=== PATIENT | male | born 1960 | race Caucasian/White ===

== ENCOUNTER 2017-08-19 15:35 | Emergency (ER) | payer OTHER ==
[2017-08-19 15:42] VITALS: RESP 16
[2017-08-19] MEDS ORDERED: FAMOTIDINE 20 MG/2 ML VIAL IV STA (15:54)
--- NOTE | 2017-08-19 15:59 | ED ---
General Adult HPI - General Chief complaint: Allergic Reaction Stated complaint: Allergic reaction Time Seen by Provider: 08/19/17 15:38 Source: patient, family, RN notes reviewed, old records reviewed Mode of arrival: EMS Limitations: no limitations - History of Present Illness Initial comments: 57-year-old male presents with concern for ALLERGIC reaction. Patient was at his primary care physician regarding any of this morning, he complained of cough which is been ongoing for some time. He was given a shot of Rocephin and Depo-Medrol. States he left clinic, went home in his usual state of health, began developing. Oral erythema and tingling. As well as diffuse rash. He will be presented to the clinic with concern for ALLERGIC reaction. He was given 50 mg of Benadryl. This was repeated for atenolol 100 mg. Patient's symptoms fail to improve. He denied any dyspnea or tongue swelling or difficulty breathing. Denied nausea vomiting. States his rash has progressed to her bodily redness. He has history of ALLERGIC rhinitis and nasal polyps. Patient was transferred by EMS for evaluation. No EpiPen was given. History of Samter's triad. - Related Data Home Medications Medication Instructions Recorded Confirmed Fluticasone/Salmeterol [Advair 1 applic INHALATION RT-BID 08/19/14 08/19/17 250-50 Diskus] Aspirin 325 mg PO BID 08/19/17 08/19/17 Budesonide [Pulmicort] 2 ml EA NOSTRIL BID 08/19/17 08/19/17 Fexofenadine HCl [Ruba Allergy] 180 mg PO QAM 08/19/17 08/19/17 Losartan [Cozaar] 25 mg PO QAM 08/19/17 08/19/17 Montelukast [Singulair] 10 mg PO HS 08/19/17 08/19/17 guaiFENesin [Mucinex] 600 mg PO BID 08/19/17 08/19/17 Allergies Allergy/AdvReac Type Severity Reaction Status Date / Time azithromycin Allergy Rash/Hives, Verified 08/19/17 15:57 Shortness of breath ceftriaxone Allergy Unknown Verified 08/19/17 18:32 sulfamethoxazole Allergy Rash/Hives Verified 08/19/17 15:57 [From Bactrim] trimethoprim [From Bactrim] Allergy Rash/Hives Verified 08/19/17 15:57 Review of Systems ROS Statement: Those systems with pertinent positive or pertinent negative responses have been documented in the HPI. ROS Other: All systems not noted in ROS Statement are negative. Past Medical History Past Medical History: Asthma, COPD Additional Past Medical History / Comment(s): HX OF POLYPS, STATES ALLERGY INDUCED ASTHMA History of Any Multi-Drug Resistant Organisms: None Reported Past Surgical History: Orthopedic Surgery Additional Past Surgical History / Comment(s): KNEE ARTHROSCOPY, RT WRIST ORIF WITH PIN, Past Anesthesia/Blood Transfusion Reactions: No Reported Reaction Past Psychological History: No Psychological Hx Reported Smoking Status: Never smoker General Exam Limitations: no limitations General appearance: alert, in no apparent distress Head exam: Present: atraumatic, normocephalic Eye exam: Present: normal appearance, PERRL ENT exam: Present: mucous membranes dry, other Neck exam: Present: normal inspection. Absent: tenderness, meningismus (or uvular swelling, no stridor) Respiratory exam: Present: normal lung sounds bilaterally. Absent: respiratory distress, wheezes, stridor Cardiovascular Exam: Present: regular rate, normal rhythm GI/Abdominal exam: Present: soft. Absent: distended, tenderness Extremities exam: Present: normal capillary refill. Absent: pedal edema Neurological exam: Present: alert, oriented X3. Absent: motor sensory deficit Psychiatric exam: Present: normal affect, normal mood Skin exam: Present: warm, rash, erythema (diffuse) Course Vital Signs 08/19/17 15:38 Temperature 99.4 F Pulse Rate 87 Respiratory 16 Rate Blood Pressure 138/79 O2 Sat by Pulse 98 Oximetry EKG Findings - EKG Comments: EKG Findings:: EKG shows sinus rhythm with occasional PVC, ventricular rate 79, HI 194, QRS 96, QTC [address] segment elevation Medical Decision Making - Medical Decision Making 57-year-old male presenting with suspected ALLERGIC reaction. Most likely causative agent is ceftriaxone. Patient did receive 100 mg of ceftriaxone. A component of his erythema noted on skin exam is likely anticholinergic reaction , combined with severe dry membranes and tachycardia. Patient is observed in the emergency department for 3 hours, no worsening of symptoms. He was given steroids earlier in the day, Benadryl by primary care physician, and Pepcid by myself. He had no stridor, no wheezing, no signs of anaphylaxis. Ceftriaxone is added to his ALLERGY list. Chest x-ray is negative for focal pneumonia or acute findings. Patient's laboratory studies included CBC and CMP are unremarkable. - Lab Data Result diagrams: 08/19/17 16:12 08/19/17 16:12 Lab Results 08/19/17 08/19/17 Range/Units 16:12 16:12 WBC 8.0 (3.8-10.6) k/uL RBC 5.46 (4.30-5.90) m/uL Hgb 15.7 (13.0-17.5) gm/dL Hct 50.9 (39.0-53.0) % MCV 93.1 (80.0-100.0) fL MCH 28.6 (25.0-35.0) pg MCHC 30.8 L (31.0-37.0) g/dL RDW 12.3 (11.5-15.5) % Plt Count 186 (150-450) k/uL Neutrophils % 90 % Lymphocytes % 7 % Monocytes % 2 % Eosinophils % 2 % Basophils % 0 % Neutrophils # 7.1 (1.3-7.7) k/uL Lymphocytes # 0.5 L (1.0-4.8) k/uL Monocytes # 0.1 (0-1.0) k/uL Eosinophils # 0.1 (0-0.7) k/uL Basophils # 0.0 (0-0.2) k/uL Sodium 139 (137-145) mmol/L Potassium 4.1 (3.5-5.1) mmol/L Chloride 103 (98-107) mmol/L Carbon Dioxide 25 (22-30) mmol/L Anion Gap 11 mmol/L BUN 27 H (9-20) mg/dL Creatinine 0.82 (0.66-1.25) mg/dL Est GFR (MDRD) Af Amer >60 (>60 ml/min/1.73 sqM) Est GFR (MDRD) Non-Af >60 (>60 ml/min/1.73 sqM) Glucose 131 H (74-99) mg/dL Calcium 10.0 (8.4-10.2) mg/dL Total Bilirubin 0.7 (0.2-1.3) mg/dL AST 36 (17-59) U/L ALT 23 (21-72) U/L Alkaline Phosphatase 51 (38-126) U/L Total Protein 7.4 (6.3-8.2) g/dL Albumin 4.3 (3.5-5.0) g/dL Critical Care Time Critical Care Time: Yes Disposition Clinical Impression: Allergic reaction, Adverse reaction to drug, Anticholinergic syndrome Disposition: HOME SELF-CARE Condition: Good Instructions: Antibiotic Medication Allergy (ED), Anaphylaxis (ED) Referrals: Keven Dennis MD [Primary Care Provider] - 1-2 days Time of Disposition: 18:38
[2017-08-19] MEDS ORDERED: SODIUM CHLORIDE 0.9% 1,000 ML IV SCH (16:00)
[2017-08-19 16:29] LABS: Basophils % (A) 0 %; Eosinophils # (A) 0.1 k/uL (0-0.7); Eosinophils % (A) 2 %; HCT 50.9 % (39.0-53.0); HGB 15.7 gm/dL (13.0-17.5); Lymphocytes # (A) 0.5 k/uL (1.0-4.8); Lymphocytes % (A) 7 %; MCH 28.6 pg (25.0-35.0); MCHC 30.8 g/dL (31.0-37.0); MCV 93.1 fL (80.0-100.0); Mean Platelet Volume 6.6; Monocytes # (A) 0.1 k/uL (0-1.0); Monocytes % (A) 2 %; Neutrophils # (A) 7.1 k/uL (1.3-7.7); Neutrophils % (A) 90 %; Platelet Count 186 k/uL (150-450); RBC 5.46 m/uL (4.30-5.90); RDW 12.3 % (11.5-15.5)
[2017-08-19 16:31] LABS: ALT 23 U/L (21-72); AST 36 U/L (17-59); Albumin 4.3 g/dL (3.5-5.0); Alkaline Phosphatase 51 U/L (38-126); Anion Gap 11 mmol/L; Blood Urea Nitrogen 27 mg/dL (9-20); Carbon Dioxide 25 mmol/L (22-30); Chloride 103 mmol/L (98-107); Glucose 131 mg/dL (74-99); Potassium 4.1 mmol/L (3.5-5.1); Sodium 139 mmol/L (137-145); Total Bilirubin 0.7 mg/dL (0.2-1.3); Total Protein 7.4 g/dL (6.3-8.2)
--- NOTE | 2017-08-19 17:39 | XR ---
EXAMINATION TYPE: XR chest 2V DATE OF EXAM: 08/19/2017 COMPARISON: 04/25/2010 INDICATION: Pain TECHNIQUE: Frontal and lateral views of the chest are obtained. FINDINGS: The heart size is normal. The pulmonary vasculature is normal. Some mild infiltrate is within the lingula with silhouetting the left heart border. Correlate for ate lectasis.. Tracheobronchial tree appears normal. No peribronchial thickening is evident. IMPRESSION: 1. Mild atelectasis at the cardiac apex within the lingula. 2. Lung gonzalez otherwise appear clear.
[2017-08-19 18:52] VITALS: BP 140/70; PULSE 78; TEMP 97.8
== END 2017-08-19 18:49 | disposition home or self-care (01) ==
LOC: EC 15:35
DX: R00.0 Tachycardia, unspecified (principal); T44.3X5A Adverse effect of other parasympatholytics [anticholinergics and antimuscarinics] and spasmolytics, initial encounter; R05 Cough; R20.2 Paresthesia of skin; J44.9 Chronic obstructive pulmonary disease, unspecified; Z79.51 Long term (current) use of inhaled steroids; Z79.82 Long term (current) use of aspirin; Z79.899 Other long term (current) drug therapy; Z88.2 Allergy status to sulfonamides; Z88.1 Allergy status to other antibiotic agents
CPT/HCPCS: 36415; 71046; 80053; 85025; 93005; 96361; 96374; 99284

== ENCOUNTER 2020-06-17 07:48 | Day surgery (SDC) | payer OTHER ==
[2020-06-12 14:11] VITALS: BMI 29.2
[~2020-06-17 07:48] MED LIST: LACTATED RINGERS 1,000 ML IV SCH; LIDOCAINE 1% (10MG/ML) FOR IV START INTRADERMA PRN
[2020-06-17 08:12] VITALS: TEMP 97
[2020-06-17] MEDS ORDERED: LIDOCAINE 1% INJ 10MG/ML (20 ML MDV) ONE (08:49)
[2020-06-17] MEDS ORDERED: PROPOFOL 10 MG/ML 20 ML VIAL IV ONE (08:49)
--- NOTE | 2020-06-17 09:39 | P.PCN ---
Date of Procedure: 06/17/20 Description of Procedure: Brief history: Patient is a pleasant 60-year-old male presenting for outpatient EGD and colonoscopy for evaluation of GERD with esophagitis and other fecal abnormalities with a positive stool test for blood. Last colonoscopy 5 years ago. He has a history of diverticulosis and colon polyps. No family history of colon cancer. Procedure performed: Esophagogastroduodenoscopy with biopsy Colonoscopy with polypectomy Estimated blood loss: Minimal. Preoperative diagnosis: GERD with esophagitis, other fecal abnormalities, stool positive for occult blood, last colonoscopy 2014. Anesthesia: MAC Procedure: After informed consent was obtained from the patient was brought into the endoscopy unit and IV sedation was administered by anesthesia under continuous monitoring. Initially upper endoscopy was done. The Olympus GF 190 video endoscope was inserted into the mouth and esophagus intubated without any difficulty and was gradually advanced into the stomach and duodenum and carefully examined. The bulb and second part of the duodenum appeared normal, with biopsies taken. The scope was then withdrawn into the stomach adequately insufflated with air and upon careful examination the antrum and body, cardia and fundus appeared normal, except for some mild punctate erythema in the antrum and body suggestive of mild gastritis with biopsies taken. The scope was then withdrawn into the esophagus. The GE junction was located at 40 cm to the incisors and biopsied, 2 cm hiatal hernia noted . It appeared regular with no erythema erosions or ulcerations. Rest of the esophagus appeared normal. Patient tolerated the procedure well. At this time the patient continued to remain sedation. Initial digital rectal examination was normal. Olympus CF 190 video colonoscope was then inserted into the rectum and gradually advanced to the cecum without any difficulty. Careful examination was performed as the scope was gradually being withdrawn. The prep was excellent. The cecum, ascending colon, transverse colon, descending colon, sigmoid colon and rectum appeared normal. A few scattered diverticula noted in the sigmoid colon. Diminutive polyps measuring 1-2 mm in size removed from the ascending colon and 2 from the sigmoid colon. Retroflexion was performed in the rectum and no lesions were noted. Patient tolerated the procedure well. Impression: 1. Mild gastritis. Small hiatal hernia. Biopsies of the duodenum, antrum body and GE junction. 2. 3 diminutive polyps removed with cold forcep polypectomy from the ascending colon and sigmoid colon 2. Mild sigmoid diverticulosis. Recommendations: Findings of this examination were discussed with the patient as well as His family. Okay to resume diet. Okay to resume medications. Await pathology from biopsies and polypectomy. Repeat colonoscopy in 5 years for colon polyps valerie jauregui pathology from polypectomy.
[2020-06-17 09:53] VITALS: BP 130/85; PULSE 80; RESP 18
== END 2020-06-17 10:09 | disposition home or self-care (01) ==
LOC: ORWHC2ENDO 07:48
PROVIDERS: ATTEND Internal Medicine
DX: D12.2 Benign neoplasm of ascending colon (principal); D12.5 Benign neoplasm of sigmoid colon; K57.31 Diverticulosis of large intestine without perforation or abscess with bleeding; K29.51 Unspecified chronic gastritis with bleeding; K21.00 Gastro-esophageal reflux disease with esophagitis, without bleeding; K44.9 Diaphragmatic hernia without obstruction or gangrene; I10 Essential (primary) hypertension; J44.9 Chronic obstructive pulmonary disease, unspecified; Z86.010 Personal history of colon polyps; Z88.1 Allergy status to other antibiotic agents; Z88.2 Allergy status to sulfonamides; Z79.899 Other long term (current) drug therapy; Z79.1 Long term (current) use of non-steroidal anti-inflammatories (NSAID); Z79.82 Long term (current) use of aspirin; Z98.890 Other specified postprocedural states; Z87.81 Personal history of (healed) traumatic fracture
CPT/HCPCS: 88305; 45380; 43239; J2001; J2704

== ENCOUNTER 2020-06-21 11:35 | Emergency (ER) | payer OTHER ==
[2020-06-21 11:45] VITALS: RESP 18; TEMP 98.3
[2020-06-21] MEDS ORDERED: SODIUM CHLORIDE 0.9% 500 ML 500 ML IV STA (11:59)
--- NOTE | 2020-06-21 12:25 | ED ---
Arrhythmia/Palpitations HPI - General Chief Complaint: Arrhythmia/Palpitations Stated Complaint: Palpitation Time Seen by Provider: 06/21/20 11:40 Source: patient, RN notes reviewed Mode of arrival: ambulatory Limitations: no limitations - History of Present Illness Initial Comments: 60-year-old male presents emergency from via EMS from urgent care chief complaint of A. fib. Patient states he was driving home yesterday around 8 PM which started having palpitations. He states she's had palpitations in the past usually last less than 30 minutes. Patient states these are more intense and lasted throughout the night. He did have episode of diaphoresis, felt short of breath and dizzy at one point. Currently symptoms have resolved. Patient was s een at urgent care was found to be in A. fib. Patient converted to normal sinus during EMS transportation. Patient has no significant cardiac history. 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 Patient denies fevers chills no URI symptoms. Denies any current ongoing diarrhea constipation. - Related Data Home Medications Medication Instructions Recorded Confirmed Aspirin 325 mg PO BID 08/19/17 06/17/20 Fexofenadine HCl [Ruba Allergy] 180 mg PO QAM 08/19/17 06/17/20 Losartan [Cozaar] 50 mg PO QAM 08/19/17 06/17/20 Montelukast [Singulair] 10 mg PO HS 08/19/17 06/17/20 guaiFENesin [Mucinex] 600 mg PO BID 08/19/17 06/17/20 Albuterol Sinus Rinse 1 dose NASAL BID 06/12/20 06/17/20 Albuterol Sulfate [Proair Hfa] 1 - 2 puff INHALATION Q6HR PRN 06/12/20 06/17/20 Ascorbic Acid [Vitamin C] 500 mg PO DAILY 06/12/20 06/17/20 Cholecalciferol [Vitamin D3 (25 5,000 unit PO DAILY 06/12/20 06/17/20 Mcg = 1000 Iu)] Famotidine [Pepcid] 40 mg PO DAILY 06/12/20 06/17/20 Ibuprofen 200 mg PO DAILY 06/12/20 06/17/20 Previous Rx's Medication Instructions Recorded Apixaban [Eliquis] 5 mg PO BID #30 tab 06/21/20 Metoprolol Succinate (ER) [Toprol 25 mg PO DAILY #14 tab 06/21/20 XL] Allergies Allergy/AdvReac Type Severity Reaction Status Date / Time azithromycin Allergy Rash/Hives, Verified 06/21/20 11:45 Shortness of breath ceftriaxone Allergy eyes Verified 06/21/20 11:45 redness,facial flushness sulfamethoxazole Allergy Rash/Hives Verified 06/21/20 11:45 [From Bactrim] trimethoprim [From Bactrim] Allergy Rash/Hives Verified 06/21/20 11:45 Review of Systems ROS Statement: Those systems with pertinent positive or pertinent negative responses have been documented in the HPI. ROS Other: All systems not noted in ROS Statement are negative. Past Medical History Past Medical History: Asthma, COPD, CVA/TIA, GERD/Reflux, Hypertension Additional Past Medical History / Comment(s): bleeding with stools, HX OF POLYPS, STATES ALLERGY INDUCED ASTHMA History of Any Multi-Drug Resistant Organisms: None Reported Past Surgical History: Orthopedic Surgery Additional Past Surgical History / Comment(s): KNEE ARTHROSCOPY, RT WRIST ORIF WITH PIN, right hip replaced Past Anesthesia/Blood Transfusion Reactions: No Reported Reaction Past Psychological History: No Psychological Hx Reported Smoking Status: Never smoker Past Alcohol Use History: Occasional Past Drug Use History: None Reported - Past Family History Mother Family Medical History: No Reported History Sister(s) Family Medical History: Cancer Additional Family Medical History / Comment(s): breast,pancreas Father Family Medical History: Cancer Additional Family Medical History / Comment(s): bladder General Exam Limitations: no limitations General appearance: alert, in no apparent distress Head exam: Present: atraumatic, normocephalic, normal inspection Eye exam: Present: normal appearance, PERRL, EOMI. Absent: scleral icterus, conjunctival injection, periorbital swelling ENT exam: Present: normal exam, normal oropharynx, mucous membranes moist Neck exam: Present: normal inspection, full ROM. Absent: tenderness, meningismus, lymphadenopathy Respiratory exam: Present: normal lung sounds bilaterally. Absent: respiratory distress, wheezes, rales, rhonchi, stridor Cardiovascular Exam: Present: regular rate, normal rhythm, normal heart sounds. Absent: systolic murmur, diastolic murmur, rubs, gallop, clicks GI/Abdominal exam: Present: soft, normal bowel sounds. Absent: distended, tenderness, guarding, rebound, rigid Extremities exam: Absent: pedal edema, calf tenderness Course Vital Signs 06/21/20 06/21/20 11:41 11:45 Temperature 98.3 F Pulse Rate 89 Respiratory 18 Rate Blood Pressure 143/89 O2 Sat by Pulse 94 L Oximetry EKG Findings - EKG Comments: EKG Findings:: EKG performed at 11:41 normal sinus rhythm , rate of 90 CA interval 190 QRS 94 QT/QTC 364/442 Medical Decision Making - Medical Decision Making 60-year-old presented for palpitations, A. fib at urgent care. Patient regina manzo is normal sinus rhythm and has been in normal sinus rhythm during his stay in the emergency department. Labs are unremarkable. Patient is asymptomatic he had no chest pain during any of this event. Patient will be started on low-dose metoprolol, anticoagulation and follow-up with cardiology. Return parameters were discussed. - Lab Data Result diagrams: 06/21/20 13:05 06/21/20 12:18 Lab Results 06/21/20 06/21/20 06/21/20 Range/Units 12:18 12:18 12:18 WBC (3.8-10.6) k/uL RBC (4.30-5.90) m/uL Hgb (13.0-17.5) gm/dL Hct (39.0-53.0) % MCV (80.0-100.0) fL MCH (25.0-35.0) pg MCHC (31.0-37.0) g/dL RDW (11.5-15.5) % Plt Count (150-450) k/uL MPV Neutrophils % % Lymphocytes % % Monocytes % % Eosinophils % % Basophils % % Neutrophils # (1.3-7.7) k/uL Lymphocytes # (1.0-4.8) k/uL Monocytes # (0-1.0) k/uL Eosinophils # (0-0.7) k/uL Basophils # (0-0.2) k/uL PT 10.7 (9.0-12.0) sec INR 1.0 (<1.2) APTT 24.8 (22.0-30.0) sec Sodium 140 (137-145) mmol/L Potassium 4.1 (3.5-5.1) mmol/L Chloride 110 H (98-107) mmol/L Carbon Dioxide 23 (22-30) mmol/L Anion Gap 7 mmol/L BUN 20 (9-20) mg/dL Creatinine 0.79 (0.66-1.25) mg/dL Est GFR (CKD-EPI)AfAm >90 (>60 ml/min/1.73 sqM) Est GFR (CKD-EPI)NonAf >90 (>60 ml/min/1.73 sqM) Glucose 114 H (74-99) mg/dL Calcium 9.5 (8.4-10.2) mg/dL Magnesium 1.9 (1.6-2.3) mg/dL Total Bilirubin 0.8 (0.2-1.3) mg/dL AST 19 (17-59) U/L ALT 14 (4-49) U/L Alkaline Phosphatase 44 (38-126) U/L Troponin I <0.012 (0.000-0.034) ng/mL Total Protein 7.2 (6.3-8.2) g/dL Albumin 4.1 (3.5-5.0) g/dL 06/21/20 Range/Units 13:05 WBC 8.0 (3.8-10.6) k/uL RBC 5.43 (4.30-5.90) m/uL Hgb 16.2 (13.0-17.5) gm/dL Hct 49.3 (39.0-53.0) % MCV 90.8 (80.0-100.0) fL MCH 29.7 (25.0-35.0) pg MCHC 32.8 (31.0-37.0) g/dL RDW 12.8 (11.5-15.5) % Plt Count 231 (150-450) k/uL MPV 6.7 Neutrophils % 78 % Lymphocytes % 12 % Monocytes % 4 % Eosinophils % 5 % Basophils % 0 % Neutrophils # 6.3 (1.3-7.7) k/uL Lymphocytes # 1.0 (1.0-4.8) k/uL Monocytes # 0.3 (0-1.0) k/uL Eosinophils # 0.4 (0-0.7) k/uL Basophils # 0.0 (0-0.2) k/uL PT (9.0-12.0) sec INR (<1.2) APTT (22.0-30.0) sec Sodium (137-145) mmol/L Potassium (3.5-5.1) mmol/L Chloride (98-107) mmol/L Carbon Dioxide (22-30) mmol/L Anion Gap mmol/L BUN (9-20) mg/dL Creatinine (0.66-1.25) mg/dL Est GFR (CKD-EPI)AfAm (>60 ml/min/1.73 sqM) Est GFR (CKD-EPI)NonAf (>60 ml/min/1.73 sqM) Glucose (74-99) mg/dL Calcium (8.4-10.2) mg/dL Magnesium (1.6-2.3) mg/dL Total Bilirubin (0.2-1.3) mg/dL AST (17-59) U/L ALT (4-49) U/L Alkaline Phosphatase (38-126) U/L Troponin I (0.000-0.034) ng/mL Total Protein (6.3-8.2) g/dL Albumin (3.5-5.0) g/dL Disposition Clinical Impression: Paroxysmal atrial fibrillation Disposition: HOME SELF-CARE Condition: Stable Instructions (If sedation given, give patient instructions): A-fib (Atrial Fibrillation) (ED) Additional Instructions: Please return to the Emergency Department if symptoms worsen or any other concerns. Prescriptions: Apixaban [Eliquis] 5 mg PO BID #30 tab Metoprolol Succinate (ER) [Toprol XL] 25 mg PO DAILY #14 tab Is patient prescribed a controlled substance at d/c from ED?: No Referrals: Keven Dennis MD [Primary Care Provider] - 1-2 days Malik Ellis MD [STAFF PHYSICIAN] - 1-2 days Time of Disposition: 13:23
--- NOTE | 2020-06-21 12:39 | XR ---
EXAMINATION TYPE: XR chest 2V DATE OF EXAM: 06/21/2020 COMPARISON: 08/29/2017 INDICATION: Dysrhythmia TECHNIQUE: Frontal and lateral views of the chest are obtained. FINDINGS: The heart size is normal. The pulmonary vasculature is normal. Minimal atelectasis may be at the left cardiac apex.. IMPRESSION: 1. There may be some minimal atelectasis the left cardiac apex. Lung gonzalez otherwise appear clear
[2020-06-21 12:52] LABS: ALT 14 U/L (4-49); AST 19 U/L (17-59); African American GFR (CKD) >90 (>60 ml/min/1.73 sqM); Albumin 4.1 g/dL (3.5-5.0); Alkaline Phosphatase 44 U/L (38-126); Anion Gap 7 mmol/L; Blood Urea Nitrogen 20 mg/dL (9-20); Calcium 9.5 mg/dL (8.4-10.2); Carbon Dioxide 23 mmol/L (22-30); Chloride 110 mmol/L (98-107); Glucose 114 mg/dL (74-99); Magnesium 1.9 mg/dL (1.6-2.3); Non-African American GFR(CKD) >90 (>60 ml/min/1.73 sqM); Potassium 4.1 mmol/L (3.5-5.1); Sodium 140 mmol/L (137-145); Total Bilirubin 0.8 mg/dL (0.2-1.3); Total Protein 7.2 g/dL (6.3-8.2)
[2020-06-21 13:11] LABS: Partial Thromboplastin Time 24.8 sec (22.0-30.0); Prothrombin Time 10.7 sec (9.0-12.0)
[2020-06-21 13:17] LABS: Basophils % (A) 0 %; Eosinophils # (A) 0.4 k/uL (0-0.7); Eosinophils % (A) 5 %; HCT 49.3 % (39.0-53.0); HGB 16.2 gm/dL (13.0-17.5); Lymphocytes % (A) 12 %; MCH 29.7 pg (25.0-35.0); MCHC 32.8 g/dL (31.0-37.0); MCV 90.8 fL (80.0-100.0); Mean Platelet Volume 6.7; Monocytes # (A) 0.3 k/uL (0-1.0); Monocytes % (A) 4 %; Neutrophils # (A) 6.3 k/uL (1.3-7.7); Neutrophils % (A) 78 %; Platelet Count 231 k/uL (150-450); RBC 5.43 m/uL (4.30-5.90); RDW 12.8 % (11.5-15.5)
[2020-06-21 13:37] VITALS: BP 119/82
[2020-06-21 13:43] VITALS: PULSE 74
== END 2020-06-21 13:43 | disposition home or self-care (01) ==
LOC: EC 11:35
DX: I48.0 Paroxysmal atrial fibrillation (principal); J44.9 Chronic obstructive pulmonary disease, unspecified; K21.9 Gastro-esophageal reflux disease without esophagitis; I10 Essential (primary) hypertension; Z79.82 Long term (current) use of aspirin; Z79.51 Long term (current) use of inhaled steroids; Z79.899 Other long term (current) drug therapy; Z79.1 Long term (current) use of non-steroidal anti-inflammatories (NSAID); Z88.1 Allergy status to other antibiotic agents; Z88.2 Allergy status to sulfonamides; Z86.73 Personal history of transient ischemic attack (TIA), and cerebral infarction without residual deficits; Z96.641 Presence of right artificial hip joint
CPT/HCPCS: 36415; 71046; 80053; 83735; 84443; 84484; 85025; 85610; 85730; 93005; 96360; 99285

== ENCOUNTER → 2020-09-19 | Outpatient (CLI) | payer OTHER ==
--- NOTE | 2020-09-19 07:53 | US ---
EXAMINATION TYPE: US kidneys/renal and bladder DATE OF EXAM: 09/19/2020 COMPARISON: NONE CLINICAL HISTORY: 60-year-old male R31.0 Gross hematuria. Patient's large dog jumped and landed on hi s pelvis 1 week ago, gross hematuria the following day TECHNIQUE: Multiple sonographic images of the kidneys and bladder are obtained. FINDINGS: EXAM MEASUREMENTS: Right Kidney: 12.6 x 5.6 x 6.3 cm Left Kidney: 12.6 x 7.6 x 6.9 cm Post Void Residual Volume: 35.1 mL Medical Laboratory Technician notes:technical limitations due to large amount of overlying bowel content Right Kidney: dilated renal pyramids. cystic area = 2.9 x 2.5 x 2.4cm Left Kidney: dilated collecting system. cystic area lower pole = 5.8 x 5.6 x 5.3cm Bladder: appears wnl Bilateral Jets seen: yes Normal Post Void Residual: Increased but within acceptable limits (<50 mL) Incidental finding: prominent prostate = 5.6cm IMPRESSION: 1. Either mild bilateral hydronephrosis or underlying prominent parapelvic cysts. The latter is favor ed given the presence of ureteral jets in the bladder. Contrast-enhanced CT with a delayed kidney pha se may be needed to confirm. 2. Prostatomegaly of 5.6 cm wide. There is increased post void residual bladder volume of 35 mL that falls within acceptable limits.
== END ==
LOC: RADUSWWP 07:06
PROVIDERS: ATTEND Family Medicine
DX: N40.0 Benign prostatic hyperplasia without lower urinary tract symptoms (principal)
CPT/HCPCS: 76770

== ENCOUNTER 2021-05-15 17:32 | Emergency (ER) | payer OTHER ==
[2021-05-15 17:38] VITALS: RESP 20
[2021-05-15] MEDS ORDERED: SODIUM CHLORIDE 0.9% 1,000 ML IV STA (17:39)
[2021-05-15] MEDS ORDERED: ACETAMINOPHEN TAB 500 MG TAB PO STA (17:39)
[2021-05-15 18:01] LABS: Basophils % (A) 0 %; Eosinophils # (A) 0.1 k/uL (0-0.7); Eosinophils % (A) 1 %; HCT 46.9 % (39.0-53.0); HGB 15.5 gm/dL (13.0-17.5); Lymphocytes # (A) 0.7 k/uL (1.0-4.8); Lymphocytes % (A) 5 %; MCH 30.6 pg (25.0-35.0); MCHC 33.2 g/dL (31.0-37.0); MCV 92.1 fL (80.0-100.0); Mean Platelet Volume 6.7; Monocytes # (A) 0.4 k/uL (0-1.0); Monocytes % (A) 3 %; Neutrophils # (A) 12.1 k/uL (1.3-7.7); Neutrophils % (A) 90 %; Platelet Count 230 k/uL (150-450); RBC 5.09 m/uL (4.30-5.90); RDW 12.2 % (11.5-15.5); WBC 13.4 k/uL (3.8-10.6)
[2021-05-15 18:09] LABS: Appearance,Urine Clear (Clear); Bilirubin,Urine Negative (Negative); Blood,Urine Negative (Negative); Color,Urine Light Yellow; Glucose,Urine (UA) Negative (Negative); Ketones,Urine 1+ (Negative); Leukocyte Esterase,Urine Negative (Negative); Nitrite,Urine Negative (Negative); Protein,Urine Negative (Negative); Specific Gravity,Urine 1.013 (1.001-1.035); Urobilinogen,Urine <2.0 mg/dL (<2.0)
--- NOTE | 2021-05-15 18:10 | XR ---
EXAMINATION TYPE: XR chest 2V DATE OF EXAM: 05/15/2021 COMPARISON: 06/21/2020 HISTORY: 61 years Male. STUDY INDICATION GIVEN: fever . TECHNIQUE: Frontal lateral chest radiographs IMPRESSION: There is a patchy opacity in the right lower lobe which was not seen on the prior study. Concerning f or pneumonia. No pneumothorax or pleural effusion. There is mild enlargement of the heart. No acute osseous abnormalities seen.
[2021-05-15 18:20] LABS: ALT 22 U/L (4-49); AST 21 U/L (17-59); African American GFR (CKD) >90 (>60 ml/min/1.73 sqM); Albumin 4.3 g/dL (3.5-5.0); Alkaline Phosphatase 51 U/L (38-126); Anion Gap 10 mmol/L; Blood Urea Nitrogen 22 mg/dL (9-20); Calcium 9.7 mg/dL (8.4-10.2); Carbon Dioxide 23 mmol/L (22-30); Chloride 102 mmol/L (98-107); Glucose 109 mg/dL (74-99); Non-African American GFR(CKD) 88 (>60 ml/min/1.73 sqM); Potassium 3.7 mmol/L (3.5-5.1); Sodium 135 mmol/L (137-145); Total Bilirubin 0.8 mg/dL (0.2-1.3); Total Protein 7.5 g/dL (6.3-8.2)
[2021-05-15] MEDS ORDERED: LEVOFLOXACIN 750 MG TAB PO STA (19:45)
--- NOTE | 2021-05-15 19:48 | ED ---
General Adult HPI - General Chief complaint: Syncope Stated complaint: Temp Source: patient, EMS Mode of arrival: EMS Limitations: no limitations - History of Present Illness Initial comments: 61-year-old male past history of asthma, COPD presents to the emergency department from an urgent care. Patient went in there for a fever that he developed this afternoon. He denies any sick contacts. He denies any symptoms of infection. No chest pain, cough or shortness of breath. No abdominal pain. No changes in his bowel or bladder habits. He did have slight nausea. He was at urgent care he felt like he was going to pass out and therefore EMS was called. He was found to have 101 fever. Denies Covid exposure. Patient is vaccinated. No headaches, neck pain. No other alleviating, precipitating or modifying factors - Related Data Home Medications Medication Instructions Recorded Confirmed Aspirin 325 mg PO DAILY 08/19/17 05/15/21 Fexofenadine HCl [Ruba Allergy] 180 mg PO DAILY 08/19/17 05/15/21 Montelukast [Singulair] 10 mg PO HS 08/19/17 05/15/21 guaiFENesin [Mucinex] 600 mg PO BID 08/19/17 05/15/21 Albuterol Sulfate [Proair 1 puff PO RT-Q6H PRN 05/15/21 05/15/21 Respiclick] Budesonide [Pulmicort] 1 vial EA NOSTRIL BID 05/15/21 05/15/21 Fluticasone Propion/Salmeterol 1 puff INHALATION RT-BID 05/15/21 05/15/21 [Domitila Fernandez [id number] Mcg] Losartan [Cozaar] 50 mg PO DAILY 05/15/21 05/15/21 Metoprolol Succinate (ER) [Toprol 25 mg PO HS 05/15/21 05/15/21 XL] Rivaroxaban [Xarelto] 20 mg PO HS 05/15/21 05/15/21 predniSONE See Taper PO BID 05/15/21 05/15/21 Previous Rx's Medication Instructions Recorded Levofloxacin [Levaquin] 750 mg PO DAILY 1 Days #5 tab 05/15/21 Allergies Allergy/AdvReac Type Severity Reaction Status Date / Time azithromycin Allergy Rash/Hives, Verified 05/15/21 18:37 Shortness of breath ceftriaxone Allergy eyes Verified 05/15/21 18:37 redness,facial flushness sulfamethoxazole Allergy Rash/Hives Verified 05/15/21 18:37 [From Bactrim] trimethoprim [From Bactrim] Allergy Rash/Hives Verified 05/15/21 18:37 Review of Systems ROS Statement: Those systems with pertinent positive or pertinent negative responses have been documented in the HPI. ROS Other: All systems not noted in ROS Statement are negative. Past Medical History Past Medical History: Asthma, COPD, CVA/TIA, GERD/Reflux, Hypertension Additional Past Medical History / Comment(s): bleeding with stools, HX OF POLYPS, STATES ALLERGY INDUCED ASTHMA History of Any Multi-Drug Resistant Organisms: None Reported Past Surgical History: Orthopedic Surgery Additional Past Surgical History / Comment(s): KNEE ARTHROSCOPY, RT WRIST ORIF WITH PIN, right hip replaced Past Anesthesia/Blood Transfusion Reactions: No Reported Reaction Past Psychological History: No Psychological Hx Reported Smoking Status: Never smoker Past Alcohol Use History: Occasional Past Drug Use History: None Reported - Past Family History Mother Family Medical History: No Reported History Sister(s) Family Medical History: Cancer Additional Family Medical History / Comment(s): breast,pancreas Father Family Medical History: Cancer Additional Family Medical History / Comment(s): bladder General Exam Limitations: no limitations Course Vital Signs 05/15/21 05/15/21 05/15/21 17:34 19:33 20:25 Temperature 101.3 F H 101.3 F H 99.8 F H Pulse Rate 94 85 Respiratory 20 20 Rate Blood Pressure 139/92 105/63 O2 Sat by Pulse 96 95 Oximetry EKG Findings - EKG Comments: EKG Findings:: EKG demonstrates a normal sinus rhythm with a ventricular rate of 91. NH interval 190. Distress 96. QTC of 418. No acute ST segment elevations or depressions Medical Decision Making - Medical Decision Making Upon arrival patient was placed into room 5. A thorough history and physical exam was performed. IV is established and patient was given a liter bolus of normal saline. Patient given 1000 mg of Tylenol and laboratory studies are conducted. White count mildly elevated at 13.4. UA negative. Influenza, RSV and Covid negative. Chest xray demonstrates pathcy opacity in the right lower lo be concerning for pneumonia. This is disussed with the patient. He is given a dose of Levaquin and will be discharged home on 5 days worth of the medication. Instructed that he follow-up with his primary care doctor for further evaluation. Return to the emergency room for any new or worsening symptoms. Patient may take Tylenol for fevers instructed not to go over 3000 mg. Patient agreed to the treatment plan was discharged home in stable condition - Lab Data Result diagrams: 05/15/21 17:43 05/15/21 17:43 Lab Results 05/15/21 05/15/21 05/15/21 Range/Units 17:43 17:43 17:43 WBC 13.4 H (3.8-10.6) k/uL RBC 5.09 (4.30-5.90) m/uL Hgb 15.5 (13.0-17.5) gm/dL Hct 46.9 (39.0-53.0) % MCV 92.1 (80.0-100.0) fL MCH 30.6 (25.0-35.0) pg MCHC 33.2 (31.0-37.0) g/dL RDW 12.2 (11.5-15.5) % Plt Count 230 (150-450) k/uL MPV 6.7 Neutrophils % 90 % Lymphocytes % 5 % Monocytes % 3 % Eosinophils % 1 % Basophils % 0 % Neutrophils # 12.1 H (1.3-7.7) k/uL Lymphocytes # 0.7 L (1.0-4.8) k/uL Monocytes # 0.4 (0-1.0) k/uL Eosinophils # 0.1 (0-0.7) k/uL Basophils # 0.0 (0-0.2) k/uL Sodium (137-145) mmol/L Potassium (3.5-5.1) mmol/L Chloride (98-107) mmol/L Carbon Dioxide (22-30) mmol/L Anion Gap mmol/L BUN (9-20) mg/dL Creatinine (0.66-1.25) mg/dL Est GFR (CKD-EPI)AfAm (>60 ml/min/1.73 sqM) Est GFR (CKD-EPI)NonAf (>60 ml/min/1.73 sqM) Glucose (74-99) mg/dL Plasma Lactic Acid Gage (0.7-2.0) mmol/L Calcium (8.4-10.2) mg/dL Total Bilirubin (0.2-1.3) mg/dL AST (17-59) U/L ALT (4-49) U/L Alkaline Phosphatase (38-126) U/L Troponin I (0.000-0.034) ng/mL Total Protein (6.3-8.2) g/dL Albumin (3.5-5.0) g/dL Urine Color Light Yellow Urine Appearance Clear (Clear) Urine pH 7.0 (5.0-8.0) Ur Specific [place] 1.013 (1.001-1.035) Urine Protein Negative (Negative) Urine Glucose (UA) Negative (Negative) Urine Ketones 1+ H (Negative) Urine Blood Negative (Negative) Urine Nitrite Negative (Negative) Urine Bilirubin Negative (Negative) Urine Urobilinogen <2.0 (<2.0) mg/dL Ur Leukocyte Esterase Negative (Negative) Influenza Type A (PCR) Not Detected (Not Detectd) Influenza Type B (PCR) Not Detected (Not Detectd) RSV (PCR) Not Detected (Not Detectd) SARS-CoV-2 (PCR) Not Detected (Not Detectd) 05/15/21 05/15/21 05/15/21 Range/Units 17:43 17:43 17:43 WBC (3.8-10.6) k/uL RBC (4.30-5.90) m/uL Hgb (13.0-17.5) gm/dL Hct (39.0-53.0) % MCV (80.0-100.0) fL MCH (25.0-35.0) pg MCHC (31.0-37.0) g/dL RDW (11.5-15.5) % Plt Count (150-450) k/uL MPV Neutrophils % % Lymphocytes % % Monocytes % % Eosinophils % % Basophils % % Neutrophils # (1.3-7.7) k/uL Lymphocytes # (1.0-4.8) k/uL Monocytes # (0-1.0) k/uL Eosinophils # (0-0.7) k/uL Basophils # (0-0.2) k/uL Sodium 135 L (137-145) mmol/L Potassium 3.7 (3.5-5.1) mmol/L Chloride 102 (98-107) mmol/L Carbon Dioxide 23 (22-30) mmol/L Anion Gap 10 mmol/L BUN 22 H (9-20) mg/dL Creatinine 0.92 (0.66-1.25) mg/dL Est GFR (CKD-EPI)AfAm >90 (>60 ml/min/1.73 sqM) Est GFR (CKD-EPI)NonAf 88 (>60 ml/min/1.73 sqM) Glucose 109 H (74-99) mg/dL Plasma Lactic Acid Gage 1.7 (0.7-2.0) mmol/L Calcium 9.7 (8.4-10.2) mg/dL Total Bilirubin 0.8 (0.2-1.3) mg/dL AST 21 (17-59) U/L ALT 22 (4-49) U/L Alkaline Phosphatase 51 (38-126) U/L Troponin I <0.012 (0.000-0.034) ng/mL Total Protein 7.5 (6.3-8.2) g/dL Albumin 4.3 (3.5-5.0) g/dL Urine Color Urine Appearance (Clear) Urine pH (5.0-8.0) Ur Specific [place] (1.001-1.035) Urine Protein (Negative) Urine Glucose (UA) (Negative) Urine Ketones (Negative) Urine Blood (Negative) Urine Nitrite (Negative) Urine Bilirubin (Negative) Urine Urobilinogen (<2.0) mg/dL Ur Leukocyte Esterase (Negative) Influenza Type A (PCR) (Not Detectd) Influenza Type B (PCR) (Not Detectd) RSV (PCR) (Not Detectd) SARS-CoV-2 (PCR) (Not Detectd) Disposition Clinical Impression: Fever, Pneumonia, Pre-syncope Disposition: HOME SELF-CARE Condition: Stable Instructions (If sedation given, give patient instructions): Pneumonia (ED) Additional Instructions: Please take the antibiotic as directed. Follow-up with your doctor in 2-4 days. Return to the emergency room for any new or worsening symptoms. Do not exceed 3,000 mg of Tylenol in a 24 hour period. Prescriptions: Levofloxacin [Levaquin] 750 mg PO DAILY 1 Days #5 tab Is patient prescribed a controlled substance at d/c from ED?: No Referrals: Keven Dennis MD [Primary Care Provider] - 1-2 days Time of Disposition: 19:48
[2021-05-15 20:39] VITALS: BP 105/63; PULSE 85; TEMP 99.8
== END 2021-05-15 20:30 | disposition home or self-care (01) ==
LOC: EC 17:32
DX: R50.9 Fever, unspecified (principal); J18.9 Pneumonia, unspecified organism; R55 Syncope and collapse; Z20.822 Contact with and (suspected) exposure to COVID-19; Z79.82 Long term (current) use of aspirin; Z88.1 Allergy status to other antibiotic agents; Z88.2 Allergy status to sulfonamides; J44.9 Chronic obstructive pulmonary disease, unspecified; Z86.73 Personal history of transient ischemic attack (TIA), and cerebral infarction without residual deficits; K21.9 Gastro-esophageal reflux disease without esophagitis; I10 Essential (primary) hypertension
CPT/HCPCS: 36415; 71046; 80053; 81003; 83605; 84484; 85025; 87636; 93005; 96360; 99284

== ENCOUNTER → 2023-12-13 | Outpatient (CLI) | payer OTHER ==
--- NOTE | 2023-12-13 17:40 | US ---
EXAMINATION TYPE: US venous doppler duplex LE DATE OF EXAM: 12/13/2023 2:37 PM COMPARISON: NONE CLINICAL INDICATION: Male, 63 years old with history of R60.0 LOCALZED EDEMA; Left ankle swelling. O n blood thinners. Recent long travels. SIDE PERFORMED: Bilateral TECHNIQUE: The lower extremity deep venous system is examined utilizing real time linear array sonog patrica with graded compression, doppler sonography and color-flow sonography. VESSELS IMAGED: Common Femoral Vein Deep Femoral Vein Greater Saphenous Vein * Femoral Vein Popliteal Vein Small Saphenous Vein * Proximal Calf Veins (* superficial vessels) Right Leg: Negative for DVT Left Leg: Negative for DVT IMPRESSION: Grayscale, color doppler, spectral doppler imaging performed of the deep veins of the lo wer extremities. There is normal flow, compressibility, vascular waveforms.
== END | disposition home or self-care (01) ==
LOC: RADUSWWP 14:11
PROVIDERS: ATTEND Family Medicine
DX: R60.0 Localized edema (principal)
CPT/HCPCS: 93970